=== PATIENT | female | born 1990 | race African-American/Black ===

== ENCOUNTER 2023-01-27 06:14 | Emergency (ER) | payer OTHER ==
[2023-01-27 06:44] VITALS: BP_SYST 138
--- NOTE | 2023-01-27 06:45 | NUR ---
PT WAS ROOMED TO BED 8, PLACED ON CARDIAC MONITORING.
--- NOTE | 2023-01-27 07:20 | NUR ---
PT BIB SELF FROM HOME, AMBULATED TO BED 8. PT A&Ox4, ABLE TO MAKE NEEDS KNOWN. PT C/O CHEST PAIN FOR A "COUPLE DAYS". PT RATES PAIN 8/10 AND DESCRIBES PAIN SHARP. PT VERBALIZED "URINARY SYSTEM HURTS." PT STATES DIARRHEA X2 DAYS AND VOMITING. PT STATES SHE NOTED BLOOD IN VOMIT. PT DENIES TAKING MEDICATION FOR THE PAIN. PT DENIES BLOODY STOOLS. ATTEMPTED TO GET PT TO GIVE URINE, PT STATED SHE WAS UNABLE TO AT THIS TIME. SAFETY PRECAUTIONS IN PLACE.
--- NOTE | 2023-01-27 07:28 | NUR ---
PT RESTING WITH EYES CLOSED, NO S/S OF DISCOMFORT NOTED. ENDORSED PT AND CARE TO ONCOMING NURSE FERNANDO SHEPPARD
[2023-01-27 07:46] LABS: BASOPHILS % (AUTO) 0.2 % (0.0-2.0); EOSINOPHILS # (AUTO) 0.1 K/uL (0.0-0.4); EOSINOPHILS % (AUTO) 0.6 % (0.0-4.0); HEMATOCRIT 39.6 % (36-48); HEMOGLOBIN 13.1 g/dL (12.0-16.0); LYMPHOCYTES # (AUTO) 1.2 K/uL (1.0-5.5); LYMPHOCYTES % (AUTO) 11.5 % (20.5-51.5); MEAN CORPUSCULAR HEMOGLOBIN 28 pg (27-31); MEAN CORPUSCULAR HGB CONC 33 % (32-36); MEAN CORPUSCULAR VOLUME 85 fL (79.0-98.0); MONOCYTES # (AUTO) 0.8 K/uL (0.0-1.0); MONOCYTES % (AUTO) 7.7 % (1.7-9.3); NEUTROPHILS # (AUTO) 8.3 K/uL (1.8-7.7); PLATELET COUNT (AUTO) 337 K/uL (130-430); RED BLOOD CELL COUNT(AUTO) 4.65 MIL/uL (4.2-6.2); RED CELL DISTRIBUTION WIDTH 15.2 % (9.0-15.0); WHITE BLOOD COUNT (AUTO) 10.4 K/uL (4.8-10.8)
[2023-01-27 07:53] LABS: ANION GAP 8 (5-15); CALCIUM 8.7 mg/dL (8.4-11.0); CHLORIDE 103 mmol/L (98-107); GFR AFRICAN AMERICAN 126 mL/min (>90); GLUCOSE 102 mg/dL (70-99); UREA NITROGEN, BLOOD 10 mg/dL (8-21)
[2023-01-27 07:58] LABS: ALANINE AMINOTRANSFERASE 27 U/L (12-78); ALBUMIN 3.3 g/dL (3.4-4.8); ASPARTATE AMINOTRANSFERASE 26 U/L (10-37); TOTAL BILIRUBIN 0.5 mg/dL (0.0-1.0)
[2023-01-27 07:59] LABS: C-REACTIVE PROTEIN QUANT < 0.2 mg/dL (0-0.5)
[2023-01-27 08:20] LABS: BILIRUBIN,URINE NEGATIVE (NEGATIVE); CLARITY/URINE CLEAR (CLEAR); COLOR,URINE YELLOW (YELLOW); GLUCOSE,URINE NEGATIVE (NEGATIVE); KETONES,URINE NEGATIVE (NEGATIVE); LEUKOCYTE ESTERASE ,URINE NEGATIVE (NEGATIVE); NITRITE, URINE NEGATIVE (NEGATIVE); PROTEIN URINE NEGATIVE (NEGATIVE); UROBILINOGEN,URINE 0.2 (0.2-1.0)
--- NOTE | 2023-01-27 08:28 | NUR ---
Called-requested CT exam, -preg.
[2023-01-27 08:29] LABS: ACETONE, SERUM NEGATIVE (NEGATIVE)
[2023-01-27 08:29] LABS: BLOOD, URINE TRACE (NEGATIVE)
[2023-01-27 08:43] LABS: BARBITURATE, URINE NEGATIVE (NEG <=200); BENZODIAZEPINE, URINE NEGATIVE (NEG <=150); CANNABINOID, URINE NEGATIVE (NEG <=50); COCAINE, URINE NEGATIVE (NEG <=150); METHAMPHETAMINES SCREEN,URINE NEGATIVE (NEG <=500); OPIATE, URINE NEGATIVE (NEG <=100); PHENCYCLIDINE SCREEN,URINE NEGATIVE (NEG <=25); UR TRICYCLIC ANTIDEPRESSANTS NEGATIVE (NEG <=300); URINE AMPHETAMINE NEGATIVE (NEG <=500); URINE METHADONE NEGATIVE (NEG <=200); URINE OXYCODONE SCREEN NEGATIVE (NEG <=100); URINE PROPOXYPHENE SCREEN NEGATIVE (NEG <=300)
[2023-01-27 08:49] LABS: BACTERIA,URINE RARE /HPF (None Seen); RBC,URINE 0-3 /HPF (0-3); WBC,URINE NONE SEEN /HPF (0-3)
[2023-01-27] MEDS ORDERED: ONDA-8 TL (09:25)
[2023-01-27] MEDS ORDERED: IBUP-1969 PO (09:25)
--- NOTE | 2023-01-27 09:39 | NUR ---
Per Dr. Dailey's request, called [id number]
[2023-01-27 10:07] VITALS: BP_SYST 136
--- NOTE | 2023-01-27 10:09 | NUR ---
Patient given written and verbal discharge instructions and verbalizes understanding. ER MD DR LAW discussed with patient the results and treatment provided. Patient in stable condition. ID arm band removed. Rx of MOTRIN AND ZOFRAN given. Patient educated on pain management and to follow up with PMD. Pain Scale 2/10. Opportunity for questions provided and answered. Medication side effect fact sheet provided.
== END 2023-01-27 06:45 | disposition home or self-care (01) ==
LOC: SED 06:14
DX: R10.30 Lower abdominal pain, unspecified (principal); R11.10 Vomiting, unspecified; R19.7 Diarrhea, unspecified; Z79.899 Other long term (current) drug therapy
CPT/HCPCS: 36415; 71045; 76376; 80053; 80307; 81000; 81025; 82009; 83605; 84703; 85025; 86140; 93005; 99285